=== PATIENT | male | born 1950 | race Caucasian/White ===

== ENCOUNTER 2017-01-30 10:05 | Day surgery (SDC) | payer MEDICARE, BC ==
[2017-01-29 10:00] LABS: CALC OSMOLALITY 268 mosm/kg (275-300); CALCIUM 9.1 mg/dL (8.5-10.1); CARBON DIOXIDE 28.9 mmol/L (21.0-32.0); CHLORIDE - SERUM 97 mmol/L (98-107); GLUCOSE 114 mg/dL (74-106); SODIUM 134 mmol/L (136-145); UREA NITROGEN 12 mg/dL (7-18); eGFR NON AFRICAN AMERICAN 79 mL/min (90-120)
[2017-01-29 10:03] LABS: HEMATOCRIT 50.6 % (42.0-54.0); HEMOGLOBIN 17.7 g/dL (13.5-17.5); MCH 31.4 pg (26.0-34.0); MCV 89.7 fL (80.0-100.0); MEAN PLATELET VOLUME 9.7 fL (7.4-10.4); RBC 5.64 10x6/uL (4.20-6.10); RDW 13.1 % (11.5-14.5); WBC 6.5 10x3/uL (4.8-10.8)
[~2017-01-30] VITALS: Ht 175.3 cm; Wt 86.2 kg
--- NOTE | ~2017-01-30 | OP ---
PATIENT NAME: GIGI CABRALES MEDICAL RECORD: [id number] :48 LOCATION:[facility] ADMISSION DATE: SURGEON: OBEY JAY OPERATION DATE: 01/30/17 DATE OF OPERATION: 01/30/2017 SURGEON: Obey Jay DPM. PREOPERATIVE DIAGNOSIS: Hammertoe deformity, fifth toe, left foot. POSTOPERATIVE DIAGNOSIS: Hammertoe deformity, fifth toe, left foot. PROCEDURE: Amputation at the metatarsophalangeal joint level, fifth toe, left foot. ANESTHESIA: Local with monitored anesthesia care. HEMOSTASIS: Pneumatic ankle tourniquet inflated to 250 mmHg. ESTIMATED BLOOD LOSS: Minimal. MATERIALS: 4-0 Vicryl and 4-0 nylon. INJECTABLES: 18 cc 0.5% bupivacaine plain. INDICATIONS: The patient has a longstanding history of pain associated with the fifth toe of the left foot due to chronic gouty osteoarthritis as well as hammertoe. We have discussed the proposed procedure, risks and benefits were discussed. Complications were reviewed. His questions were answered. He was appropriately consented for the above-mentioned procedure. DESCRIPTION OF PROCEDURE: The patient was brought in the operating room and placed in the operating table in supine position. A timeout was called with Dr. Jay, who identified the patient, the surgical site, and the surgery to be performed. Once appropriate anesthesia was obtained, the foot was prepped and draped in the usual aseptic manner. The pneumatic ankle tourniquet was inflated to 250 mmHg on a well-padded left ankle. Attention was directed to the base of the fifth toe of the left foot where a full thickness fishmouth incision was made at the base of the digit. This incision was carried deep to the level of the base of the proximal phalanx. The fifth metatarsophalangeal joint was then sharply entered with a 15 blade. The toe was disarticulated and passed from the field. It was sent to pathology. The surgical site was then investigated for any pathological tissue and some tophaceous material was noted within the surgical site. This tophaceous material was then sharply debrided. The surgical incision was then remodeled as necessary to facilitate closure. The surgical site was then irrigated with copious amounts of normal sterile saline via bulb syringe. The subQ tissues were then reapproximated and coapted using 4-0 Vicryl. The skin was then reapproximated and coapted using 4-0 Prolene. A dressing OPERATIVE REPORT [id number] GIGI CABRALES consisting of Xeroform, 4 x 4's, Kerlix, and Dany bandage was applied to the left foot. The pneumatic ankle tourniquet was deflated and capillary refill time was immediate to all digits of the left foot. The patient tolerated the procedure and anesthesia well. He left the operating room with vital signs stable and capillary refill time intact. The patient was discharged home with instructions to ice and elevate the left foot. He was dispensed a postop shoe to help offload the foot. I provided him with my cell phone number for any after hour difficulties. There were no complications with this procedure. We will follow up with him next week. TRANSINT:[id number] Voice Confirmation ID: [id number] DOCUMENT ID: [id number] OBEY JAY CC: [id number] DICTATION DATE: 01/30/17 1553 PHOTOVOLTAIC SUBCONTRACTOR: 01/30/175 [facility] 01/30/17 [id number] [place] [address]
[2017-01-30 09:51] VITALS: BP 158/86; Ht 175.3 cm; Wt 86.2 kg
[~2017-01-30 10:05] MED LIST: FISH OIL 1,0001 CA1 PO; LISINOPRIL-HCTZ1 T13 PO; NAPROSYN500 MG PO; ZYLOPRIM100 MG PO
== END 2017-01-30 14:10 | disposition home or self-care (01) ==
LOC: D.OPS 10:05 → D.PAN 11:30 → D.OPS 14:10
PROVIDERS: Anesthesiology
DX: M20.42 Other hammer toe(s) (acquired), left foot (principal); Z01.812 Encounter for preprocedural laboratory examination